=== PATIENT | female | born 1990 | race Caucasian/White ===

== ENCOUNTER 2016-10-28 06:54 | Day surgery (SDC) | payer MEDICAID ==
[~2016-10-28 06:54] MED LIST: RINGERS SOLUTION,LACTATED 1,000 ML IV PRN; ceFAZolin SODIUM 2 GM in DEXTROSE 5 % IN WATER 50 ML IV PRN
--- OUTSIDE RECORDS SUMMARY | 2016-10-28 06:59 | XMS REPORT | Continuity of Care Document ---
:1990 Author Organization [facility] ([facility]) [place] [address] Phone [phone] Care Team Providers Name Role Phone Jimmy Renteria Primary Care Provider [phone] Source Comments This disclosure is being made pursuant to the Care Everywhere program, applicable federal and state laws, and may not contain all informaitonavailable regarding this patient.[facility] ([facility]) Active Allergies and Adverse Reactions No Known Allergies Current Medications Prescription Sig. Disp. Refills Start Date End Date Status VITS take 1 Tab by Active W-CA,FE,FA,<1MG, ( mouth daily. VITAMIN PO) Active Problems Currently Estimated Date of Delivery Comments Yes No additional problems on file Social History Tobacco Use Types Packs/Day Years Used Date Never Smoker Alcohol Use Drinks/Week oz/Week Comments No Last Filed Vital Signs Vital Sign Reading Time Taken Blood Pressure 140/72 11/21/2009 2:40 PM CDT Pulse 117 11/21/2009 2:40 PM CDT Temperature 36.2 C (97.2 F) 11/21/2009 2:40 PM CDT Respiratory Rate - - Height - - Weight 63.3 kg (139 lb 8.8 oz) 11/21/2009 2:40 PM CDT Body Mass Index - - Oxygen Saturation - - Plan of Care Health Maintenance Due Date Last Done Comments Hepatitis B Vaccine (1 of 3 - Primary Series) 1990 HPV Vaccine (1 of 3 - Female/Unknown 3 Dose Series) 11/24/2002 Tdap Vaccine 11/24/2002 Cervical Cancer Screening 11/24/2009 Lipid Disorder Screening 11/24/2009 MMR Vaccine 11/24/2009 Td Vaccine 11/24/2009 Varicella Vaccine (1 of 2 - Adult - No Evidence of 11/24/2009 Immunity) Influenza Vaccine: Seasonal (#1) 04/01/2016 Results from Last 3 Months Not on file
[2016-10-28] MEDS ORDERED: ceFAZolin SODIUM 1 GM VIAL IV ONE (09:05)
[2016-10-28] MEDS ORDERED: LIDOCAINE HCL 50 ML VIAL IJ ONE (09:30)
[2016-10-28] MEDS ORDERED: BUPIVACAINE HCL 50 ML VIAL IJ ONE (09:30)
[2016-10-28] MEDS ORDERED: RINGERS SOLUTION,LACTATED 1,000 ML IV ONE (10:35)
[2016-10-28 12:58] VITALS: BP 130/80
== END 2016-10-28 06:55 | disposition home or self-care (01) ==
LOC: AMB 06:54
PROVIDERS: ATTEND Student in an Organized Health Care Education/Training Program
PROC: 0YQK0ZZ Repair Right Ankle Region, Open Approach (ICD-10-PCS; principal; 2016-10-28 08:00)
DX: M25.371 Other instability, right ankle (principal); J45.909 Unspecified asthma, uncomplicated; D50.9 Iron deficiency anemia, unspecified; Z68.34 Body mass index [BMI] 34.0-34.9, adult